=== PATIENT | male | born 1980 | race Caucasian/White ===

== ENCOUNTER 2017-10-26 05:01 | Emergency (ER) | payer SELFPAY ==
[2017-10-26 05:33] VITALS: BMI 30.2
[2017-10-26] MEDS ORDERED: CYCLOBENZAPRINE HCL 10 MG TABLET (FP) PO ONE ×2 (05:38)
[2017-10-26] MEDS ORDERED: KETOROLAC TROMETHAMINE 60 MG/2 ML VIAL IM ONE (05:39)
[2017-10-26] MEDS ORDERED: KETOROLAC TROMETHAMINE 60 MG/2 ML VIAL ONE (05:41)
[2017-10-26] MEDS ORDERED: CYCLOBENZAPRINE HCL 10 MG TABLET (FP) ONE (05:41)
--- NOTE | 2017-10-26 05:41 | PDOC ---
History of Present Illness - General Chief Complaint: Pain, Acute Stated Complaint: PAIN Time Seen by Provider: 10/26/17 05:24 History Source: Patient Exam Limitations: No Limitations - History of Present Illness Initial Comments: 10/26/17 05:39 The patient is a 37M with no PMH who presents to the ER with complaints of R leg pain. The patient states that the pain started 3 weeks ago and was much more mild. Since then, it has progressed to pain that is so bad, he cannot lay still, ambulate, or go to sleep. He states that the pain starts in his SI joint area, radiates down his leg and has numbness and tingling in his foot. He denies saddle anesthesia, fever, chills, bowel/bladder incontinence, and lower back pain. Past History - Past Medical History Allergies/Adverse Reactions: Allergies Allergy/AdvReac Type Severity Reaction Status Date / Time No Known Allergies Allergy Verified 10/26/17 05:26 Home Medications: Ambulatory Orders Diphenhydramine HCl [Benadryl Capsule -] 25 mg PO Q6H #28 capsule 05/01/14 - Suicide/Smoking/Psychosocial Hx Smoking History: Current every day smoker Number of Cigarettes Smoked Daily: 6 Information on smoking cessation initiated: No Hx Alcohol Use: No Drug/Substance Use Hx: No Substance Use Type: Alcohol Review of Systems - Review of Systems Able to Perform ROS?: Yes Comments:: 10/26/17 05:49 GENERAL/CONSTITUTIONAL: No fever or chills. No weakness. HEAD, EYES, EARS, NOSE AND THROAT: No change in vision. No ear pain or discharge. No sore throat. CARDIOVASCULAR: No chest pain, palpitations, or lightheadedness. RESPIRATORY: No cough, wheezing, shortness of breath, or hemoptysis. GASTROINTESTINAL: No nausea, vomiting, diarrhea, constipation, or abdominal pain. GENITOURINARY: No dysuria, frequency, hematuria, or change in urination. MUSCULOSKELETAL: Positive for back pain. No joint or muscle swelling or pain. SKIN: No rash or lesions. NEUROLOGIC: No headache, numbness, tingling, weakness, loss of consciousness, or change in strength/sensation. ENDOCRINE: No increased thirst. No abnormal weight change. HEMATOLOGIC/LYMPHATIC: No anemia, easy bleeding, or history of blood clots. ALLERGIC/IMMUNOLOGIC: No hives or skin allergy. *Physical Exam - Vital Signs Last Vital Signs Temp Pulse Resp BP Pulse Ox 98.4 F 89 20 120/88 98 10/26/17 05:05 10/26/17 05:05 10/26/17 05:05 10/26/17 05:05 10/26/17 05:05 - Physical Exam Comments: 10/26/17 05:57 GENERAL: Well developed, well nourished. Awake and alert. No acute distress. HEENT: Normocephalic, atraumatic. Hearing grossly normal. Moist mucous membranes. PERRLA, EOMI. No conjunctival pallor. Sclera are non-icteric. Oropharynx is clear. NECK: Supple. Full ROM. No JVD. CARDIOVASCULAR: Regular rate and rhythm. No murmurs, rubs, or gallops. Distal pulses are 2+ and symmetric. PULMONARY: No evidence of respiratory distress. Lungs clear to auscultation bilaterally. No wheezing, rales or rhonchi. ABDOMINAL: Soft. Non-tender. Non-distended. No rebound or guarding. No organomegaly. Normoactive bowel sounds. GENITOURINARY: No CVA tenderness bilaterally. MUSCULOSKELETAL: Painful straight leg raise R > L. Neurovascularly intact in b/ l LE. R SI joint TTP. EXTREMITIES: No cyanosis. No clubbing. No edema. No calf tenderness. SKIN: Warm and dry. Normal capillary refill. No rashes. No jaundice. NEUROLOGICAL: Alert, awake, appropriate. Cranial nerves 2-12 intact. Decreased sensation in R LE. Normal speech. Ataxic gait 2/2 pain. PSYCHIATRIC: Cooperative. Good eye contact. Appropriate mood and affect. ED Treatment Course - RADIOLOGY Radiology Studies Ordered: Category Date Time Status SPINE-LUMBAR SACRAL [RAD] Stat Radiology 10/26/17 05:32 Ordered Medical Decision Making - Medical Decision Making 10/26/17 05:59 The patient is a 37M with no PMH who presents with acutely worsening R leg pain , originating from his SI joint and radiating down his leg. The pain is likely sciatica. I have ordered LS imaging and flexeril/toradol for pain control. Will reassess and look for imaging when it returns. 10/26/17 06:09 Preliminary read of XR's negative. Will reassess for effectiveness of medication. 10/26/17 07:19 Pt has been signed out to Dr. Dutton, day team.
--- NOTE | 2017-10-26 06:25 | PDOC ---
Attending Attestation - Resident Resident Name: Jose Dominguez - ED Attending Attestation I have performed the following: I have examined & evaluated the patient, The case was reviewed & discussed with the resident, I agree w/resident's findings & plan, Exceptions are as noted - HPI HPI: 10/26/17 06:20 37 year old male with no pmh p/w lower back pain radiating to right lower extremity x 2 weeks, worsening in last two days. 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 Does not recall a specific event but noticed pain worsening. States he feels "tingling" along his right lower extremity. Denies urinary or bowel incontinence. Denies saddle anesthesia. Pain has worsened so came into ED. - Physicial Exam PE: 10/26/17 06:23 GENERAL: Awake, alert, and fully oriented, in no acute distress. HEAD: No signs of trauma EYES: PERRLA, EOMI, sclera anicteric, conjunctiva clear ENT: Auricles normal inspection, hearing grossly normal, nares patent NECK: Normal ROM, supple LUNGS: Breath sounds equal, clear to auscultation bilaterally. No wheezes, and no crackles HEART: Regular rate and rhythm, normal S1 and S2, no murmurs, rubs or gallops ABDOMEN: Soft, nontender, normoactive bowel sounds. No guarding, no rebound. No masses EXTREMITIES: RLE: SLR positive approximately 40 degrees. Full strength but with reported pain in back. BACK: TTP ~L5-S1. no stepoffs. NEUROLOGICAL: Cranial nerves II through XII grossly intact. Pt reports subjective mildly decreased sensation along RLE. SKIN: Warm, Dry, normal turgor, no rashes or lesions noted. - Medical Decision Making 10/26/17 06:24 Vital Signs Temp Pulse Resp BP Pulse Ox 98.4 F 89 20 120/88 98 10/26/17 05:05 10/26/17 05:05 10/26/17 05:05 10/26/17 05:05 10/26/17 05:05 I suspect that the patient likely has a herniated disc with sciatica. Pain control and reassess. If symptoms are controllable, patient should be discharged with spine and PMD follow up for likely physical therapy and further outpatient management.
[2017-10-26] MEDS ORDERED: oxyCODONE HCL 5 MG TABLET PO ONE (06:37)
[2017-10-26] MEDS ORDERED: predniSONE 20 MG TABLET (UD) PO ONE (06:37)
[2017-10-26] MEDS ORDERED: oxyCODONE HCL 5 MG TABLET ONE (06:46)
[2017-10-26] MEDS ORDERED: predniSONE 20 MG TABLET (UD) ONE (06:46)
[2017-10-26 07:36] VITALS: TEMP 98.3
[2017-10-26] MEDS ORDERED: diazePAM 5 MG TABLET PO ONE (08:05)
[2017-10-26] MEDS ORDERED: diazePAM 5 MG TABLET ONE (08:06)
--- NOTE | 2017-10-26 09:12 | PDOC ---
*Physical Exam - Vital Signs Last Vital Signs Temp Pulse Resp BP Pulse Ox 98.3 F 85 18 116/74 99 10/26/17 07:35 10/26/17 07:35 10/26/17 07:35 10/26/17 07:35 10/26/17 07:35 - Physical Exam Comments: Received sign out from Dr Dominguez. 37yo M with acute on chronic sciatica pain originating from lower back radiating down R leg. 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 During ER course, patient had been given pain medication with relief. XR of L spine show no abnormalities. Since pain is controlled, will discharge patient with percocet, and followup with foreclosure specialist. ED Treatment Course - Medications Given in the ED: ED Medications Discontinued Medications Generic Name Dose Route Start Last Admin Trade Name Freq PRN Reason Stop Dose Admin Cyclobenzaprine HCl 5 mg 10/26/17 05:38 10/26/17 05:44 Flexeril - PO 10/26/17 05:39 Not Given ONCE ONE Cyclobenzaprine HCl 10 mg 10/26/17 05:38 10/26/17 05:44 Flexeril - PO 10/26/17 05:39 10 mg ONCE ONE Administration Diazepam 5 mg 10/26/17 08:05 10/26/17 08:08 Valium - PO 10/26/17 08:06 5 mg ONCE ONE Administration Ketorolac Tromethamine 60 mg 10/26/17 05:39 10/26/17 05:43 Toradol Injection - IM 10/26/17 05:40 60 mg ONCE ONE Administration Oxycodone HCl 5 mg 10/26/17 06:37 10/26/17 06:48 Roxicodone - PO 10/26/17 06:38 5 mg ONCE ONE Administration Oxycodone/Acetaminophen 1 combo 10/26/17 08:11 10/26/17 08:21 Percocet 5/325 - PO 10/26/17 08:12 1 combo ONCE ONE Administration Prednisone 40 mg 10/26/17 06:37 10/26/17 06:48 Deltasone - PO 10/26/17 06:38 40 mg ONCE ONE Administration *DC/Admit/Observation/Transfer Diagnosis at time of Disposition: Sciatica associated with disorder of lumbosacral spine - Discharge Dispostion Disposition: HOME Condition at time of disposition: Improved Admit: No - Prescriptions Prescriptions: Oxycodone HCl/Acetaminophen [Percocet 5-325 mg Tablet] 1 tab PO Q6H 4 Days #16 tablet MDD 4 pills - Referrals Referrals: Manoj Arcos MD [Staff Physician] - - Patient Instructions Printed Discharge Instructions: DI for Back Pain With Sciatica Print Language: MALTESE - Post Discharge Activity Forms/Work/School Notes: Back to Work
[2017-10-26 09:44] VITALS: BP 112/74; PULSE 80
== END 2017-10-26 09:44 | disposition home or self-care (01) ==
LOC: JER 05:01
PROC: 3E0233Z Introduction of Anti-inflammatory into Muscle, Percutaneous Approach (ICD-10-PCS; principal; 2017-10-26)
DX: M54.30 Sciatica, unspecified side (principal); F17.210 Nicotine dependence, cigarettes, uncomplicated
CPT/HCPCS: 72100-TC-FY; 73590-TC-RT; 99283-25

== ENCOUNTER 2022-05-23 06:40 | Emergency (ER) | payer SELFPAY ==
[2022-05-23 06:56] VITALS: BP 134/83; PULSE 85; RESP 17; TEMP 98.3; BMI 27.8
[2022-05-23] MEDS ORDERED: DEXAMETHASONE LIQUID 0.5 MG/5 ML PO ONE (07:31)
[2022-05-23] MEDS ORDERED: KETOROLAC TROMETHAMINE 30 MG/1 ML VIAL IM ONE (07:31)
[2022-05-23] MEDS ORDERED: diazePAM 5 MG TABLET PO ONE (07:32)
[2022-05-23] MEDS ORDERED: diazePAM 5 MG TABLET ONE (07:39)
[2022-05-23] MEDS ORDERED: DEXAMETHASONE SOD PHOSPHATE 10 MG/1 ML VIAL ONE (07:40)
[2022-05-23] MEDS ORDERED: KETOROLAC TROMETHAMINE 30 MG/1 ML VIAL ONE (07:40)
== END 2022-05-23 08:40 | disposition home or self-care (01) ==
LOC: JER 06:40
DX: M54.12 Radiculopathy, cervical region (principal)
CPT/HCPCS: 99283-25